=== PATIENT | male | born 1980 ===

== ENCOUNTER 2021-04-28 12:48 | Emergency (ER) | payer MEDICAID, OTHER ==
[~2021-04-28] VITALS: Ht 170.2 cm; Wt 88.5 kg
[2021-04-28] MEDS ORDERED: ACETAMINOPHEN 325 MG TAB PO ONE (13:45)
[2021-04-28 16:38] VITALS: BP 137/55
== END 2021-04-28 16:39 | disposition home or self-care (01) ==
LOC: ER 12:51
DX: S93.401A Sprain of unspecified ligament of right ankle, initial encounter (principal); X58.XXXA Exposure to other specified factors, initial encounter; Y93.89 Activity, other specified; Y92.89 Other specified places as the place of occurrence of the external cause; Y99.8 Other external cause status
CPT/HCPCS: 73610